=== PATIENT | female | born 1940 | race Caucasian/White ===

== ENCOUNTER 2016-09-14 12:33 | Emergency (ER) | payer MEDICARE, BC, OTHER ==
[2016-09-14 12:49] VITALS: BP 125/68
--- NOTE | 2016-09-14 13:09 | UC ---
Throat Pain/Nasal Rodolfo HPI - HPI Summary HPI Summary: complaint of cough and nasal congestion for approx 1 week sore throat lost her voice coughing uncontrollably at night pale yellow sputum at times intermittent headaches taking tylenol without relief denies shortness of breath, edema denies N/V/D - History of Current Complaint Chief Complaint: UCRespiratory Stated Complaint: CONGESTION COUGH Time Seen by Provider: 09/14/16 13:02 Hx Obtained From: Patient - Allergies/Home Medications Allergies/Adverse Reactions: Allergies Allergy/AdvReac Type Severity Reaction Status Date / Time No Known Allergies Allergy Verified 09/14/16 12:49 Home Medications: Home Medications Calcium Carbonate [Calcium] 500 mg PO DAILY 09/14/16 [History Confirmed 09/14/16 ] Cetirizine* [ZyrTEC 10 MG TAB*] 10 mg PO DAILY 09/14/16 [History Confirmed 09/14] Cholecalciferol [Vitamin D] 1 tab PO DAILY 09/14/16 [History Confirmed 09/14/16] Cholestyramine Light [Prevalite] 4 gm PO ONCE 09/14/16 [History Confirmed ] Esomeprazole Magnesium [Nexium] 40 mg PO DAILY 09/14/16 [History Confirmed 09/14] Ezetimibe TAB* [Zetia TAB*] 10 mg PO DAILY 09/14/16 [History Confirmed 09/14/16] Gabapentin CAP(*) [Neurontin 300 CAP(*)] 300 mg PO TID 09/14/16 [History Confirmed 09/14/16] Losartan TAB* [Cozaar TAB*] 25 mg PO DAILY 09/14/16 [History Confirmed 09/14/16] Nitroglycerin TAB 0.4 MG* 0.4 mg SL Q5M PRN 09/14/16 [History Confirmed 09/14/16 ] [place]-3 Fatty Acids [Fish Oil] 1,000 mg PO DAILY 09/14/16 [History Confirmed ] Potassium Chloride Microencaps [Klor-Con M10] 10 meq PO QID 09/14/16 [History Confirmed 09/14/16] Rosuvastatin Calcium [Crestor] 20 mg PO DAILY 09/14/16 [History Confirmed ] metFORMIN* [Glucophage 500 MG TAB *] 500 mg PO TID 09/14/16 [History Confirmed 09/14/16] PMH/Surg Hx/FS Hx/Imm Hx Previously Healthy: Yes Endocrine History: Diabetes Cardiovascular History: Hypertension GI/ History: Gastroesophageal Reflux, Diverticulitis - Surgical History Surgical History: Yes Surgery Procedure, Year, and Place: cardiac stents 1998. Colon resection 2004 - Family History Known Family History: Negative: Cardiac Disease, Hypertension, Diabetes - Social History Occupation: Retired Lives: With Family Alcohol Use: Rare Substance Use Type: None Smoking Status (MU): Never Smoked Tobacco Review of Systems Constitutional: Chills Skin: Negative Eyes: Negative ENT: Sore Throat, Nasal Discharge, Sinus Congestion, Sinus Pain/Tenderness Respiratory: Cough Cardiovascular: Negative Gastrointestinal: Negative Genitourinary: Negative Motor: Negative Neurovascular: Negative Musculoskeletal: Negative Neurological: Headache Psychological: Negative All Other Systems Reviewed And Are Negative: Yes Physical Exam Triage Information Reviewed: Yes Appearance: Well-Nourished, Ill-Appearing Vital Signs: Initial Vital Signs Temp 98.2 F 09/14/16 12:40 Pulse 68 09/14/16 12:40 Resp 18 09/14/16 12:40 BP 125/68 09/14/16 12:40 Pulse Ox 98 09/14/16 12:40 Vital Signs Reviewed: Yes Eyes: Positive: Conjunctiva Clear ENT: Positive: Pharyngeal erythema, Nasal congestion, Nasal drainage, TMs normal , Other: - frontal sinus tenderness Neck: Positive: No Lymphadenopathy Respiratory: Positive: Lungs clear, Normal breath sounds, No respiratory distress, No accessory muscle use Cardiovascular: Positive: RRR, No Murmur, Pulses Normal Abdomen Description: Positive: Nontender, Soft Bowel Sounds: Positive: Present Musculoskeletal: Positive: No Edema Neurological: Positive: Alert Psychological Exam: Normal Skin Exam: Normal Throat Pain/Nasal Course/Dx - Differential Dx/Diagnosis Differential Diagnosis/HQI/PQRI: Pharyngitis, Sinusitis, Tonsillitis Provider Diagnoses: sinusitis Discharge - Discharge Plan Condition: Stable Disposition: HOME Prescriptions: Amoxicillin/Clavulanate TAB* [Augmentin TAB 875*] 875 mg PO BID #20 tab Guaifenesin-Codeine [Cheratussin AC] 10 ml PO Q4HR PRN #240 syp MDD 60 ml PRN Reason: Cough Patient Education Materials: Sinusitis (ED) Referrals: [facility] [place] [facility] [Outside] Additional Instructions: SINUSITIS What is Sinusitis? Sinusitis is inflammation or infection of the lining of the sinuses behind the bones in your cheeks or forehead. Sinusitis may occur following a common cold, flu, or other infection; allergies; a tooth infection that spreads to the sinuses; swimming in contaminated water; pressure changes in airplanes at high altitudes; violent sneezing or nose blowing or smoking or breathing other peoples smoke. Symptoms Might Include: Nasal Congestion Sneezing Watery eyes, eye irritation, or eye itching Headaches Pressure in the cheeks Wheezing Trouble smelling Sore throat and coughing may occur Treatment Recommendations: Take medicines as prescribed until completely gone. Drink plenty of fluids. Use saline nose spray to thin the mucous and help the sinuses drain. Use a vaporizer or humidifier. Apply warm compresses to the face or forehead several times a day for 10 to 20 minutes. Call Your Doctor or Return Here IF: Your pain increases during treatment. You develop a high temperature. You develop unusual swelling around the eyes. You have difficulty with your vision. You develop a severe headache, earache, or toothache. You develop increased fever or fever that does not respond to medication such as Tylenol?. You have difficulty breathing or catching your breath. You begin to have any other new symptoms that worry you.
== END 2016-09-14 14:00 | disposition home or self-care (01) ==
LOC: UCCORT 12:33
DX: J32.9 Chronic sinusitis, unspecified (principal); E11.9 Type 2 diabetes mellitus without complications; Z79.84 Long term (current) use of oral hypoglycemic drugs; I10 Essential (primary) hypertension; K21.9 Gastro-esophageal reflux disease without esophagitis; K57.92 Diverticulitis of intestine, part unspecified, without perforation or abscess without bleeding
CPT/HCPCS: 99202; G0463